=== PATIENT | female | born 1995 ===

== ENCOUNTER → 2017-08-28 | Emergency (ER) | payer OTHER ==
[~2017-08-28] VITALS: Ht 157.5 cm; Wt 59.0 kg
== END | disposition home or self-care (01) ==
LOC: ER 13:08
DX: B02.9 Zoster without complications (principal)

== ENCOUNTER 2021-01-15 08:01 | Emergency (ER) | payer OTHER ==
[~2021-01-15] VITALS: Ht 157.5 cm; Wt 56.7 kg
[2021-01-15] MEDS ORDERED: ZITHROMAX500 MG PO (13:29)
[2021-01-15] MEDS ORDERED: INTESTINEX680 M1 PO (13:29)
[2021-01-15] MEDS ORDERED: PEPCID AC20 MG PO (13:29)
[2021-01-15] MEDS ORDERED: KETO10TA2 PO (13:29)
== END 2021-01-15 14:07 | disposition home or self-care (01) ==
LOC: ER 08:01
DX: J35.01 Chronic tonsillitis (principal); Z11.52 Encounter for screening for COVID-19